=== PATIENT | female | born 1975 | race Hispanic/Latino ===

== ENCOUNTER 2024-03-10 08:16 | Outpatient (CLI) | payer OTHER | END 2024-03-10 08:17 | disposition home or self-care (01) | LOC: BICRAD 08:16 | PROVIDERS: ATTEND Family Medicine | DX: M54.10 Radiculopathy, site unspecified (principal); M25.572 Pain in left ankle and joints of left foot; M25.561 Pain in right knee; M25.562 Pain in left knee; M25.472 Effusion, left ankle; M47.812 Spondylosis without myelopathy or radiculopathy, cervical region; M19.072 Primary osteoarthritis, left ankle and foot; Z98.890 Other specified postprocedural states | CPT/HCPCS: 72040 ==